=== PATIENT | male | born 1955 | race Caucasian/White ===

== ENCOUNTER 2018-12-31 15:50 | Emergency (ER) | payer BC ==
[~2018-12-31] VITALS: Ht 172.7 cm; Wt 74.8 kg
[~2018-12-31 15:50] MED LIST: [UNRECOGNIZED DRUG - REMARK]
[2018-12-31] MEDS ORDERED: ASPIRIN 325 MG TABLET PO ONE (16:00)
[2018-12-31] MEDS ORDERED: ASPIRIN 325 MG TABLET ONE (16:03)
--- NOTE | 2018-12-31 16:03 | NUR ---
PT IS A/OX4, PRESENTS TO THE ER, C/O C/P X 3 DAYS. PT REPORTS HE WAS REFERRED TO THIS ED FROM DR. GONZALEZ'S OFFICE FOR THE L CHEST PAIN X 3 DAYS, NON-PROVOKED, SHARP IN QUALITY, DOES NOT RADIATE, 3/10, CONSTANT. VSS. SKIN IS DRY, WARM, CAP REFILL < 3 SECS. NO RESPIRATORY DISTRESS NOTED. PT DENIES SOB, N/V/D, DIZZINESS, HEADACHE.
[2018-12-31 16:08] LABS: BASOPHILS % (AUTO) 0.5 % (0.0-2.0); EOSINOPHILS # (AUTO) 0.3 K/uL (0.0-0.7); EOSINOPHILS % (AUTO) 3.7 % (0.0-7.0); HEMATOCRIT 42.6 % (36.7-47.1); HEMOGLOBIN 14.1 g/dL (12.5-16.3); LYMPHOCYTES % (AUTO) 24.8 % (20.5-51.5); MEAN CORPUSCULAR HEMOGLOBIN 32.6 uug (23.8-33.4); MEAN CORPUSCULAR HGB CONC 33 g/dL (32.5-36.3); MEAN CORPUSCULAR VOLUME 98.1 fL (73.0-96.2); MONOCYTES # (AUTO) 0.8 K/uL (2.0-10.0); MONOCYTES % (AUTO) 9.9 % (0.0-11.0); NEUTROPHILS % (AUTO) 61.1 % (38.5-71.5); PLATELET COUNT (AUTO) 206 K/uL (152-348); RED BLOOD CELL COUNT(AUTO) 4.34 MIL/uL (4.06-5.63); WHITE BLOOD COUNT (AUTO) 8.2 K/uL (3.6-10.2)
--- NOTE | 2018-12-31 18:10 | NUR ---
CALLED TELE DEPARTMENT TO GIVE ADMITTING REPORT, INFORMED BY CHARGE NURSE AND NURSING COLOR ADVISER TO ADMIT PT AFTER CHANGE OF SHIFT.
--- NOTE | 2018-12-31 18:32 | NUR ---
Pt. admitted to TELE 304, under care of Dr. GONZALEZ. [place]ongs List completed
--- NOTE | 2018-12-31 18:56 | NUR ---
SHIFT REPORT GIVEN TO ADRIANNE Leggett RN.
--- NOTE | 2018-12-31 18:58 | NUR ---
Assumed care of patient. Awaiting inpatient admission. Patient is admitted to Telemetry. Admitted by Noé LOPEZ. Awaiting 1929 for inpatient unit to accept report for this patient.
--- NOTE | 2018-12-31 19:30 | NUR ---
Patient states he wants to leave AMA. ER MD is notified and currently speaking to the patient.
--- NOTE | 2018-12-31 19:41 | NUR ---
ER MD spent an extensive amount of time speaking to the patient and providing risks vs benefits. Patient decided to leave AMA in the end.
== END 2018-12-31 19:42 | disposition left against medical advice (07) ==
LOC: ER 15:52
DX: R07.89 Other chest pain (principal); I10 Essential (primary) hypertension
CPT/HCPCS: 36415; 70030-TC; 71045; 85025; 93005; A4663